=== PATIENT | female | born 1965 | race Caucasian/White ===

== ENCOUNTER 2024-06-07 14:24 | Emergency (ER) | payer BC, SELFPAY ==
[2024-06-07 14:25] VITALS: BP 122/56; PULSE 71; RESP 16; TEMP 36.4; O2SAT 100
--- NOTE | 2024-06-07 15:21 | ED.GENADULT ---
HPI - General Adult General Chief complaint: Wound/Laceration Stated complaint: L WRIST LAC ACCIDENTAL Time Seen by Provider: 06/07/24 15:13 History of Present Illness HPI narrative: patient is 59-year-old female who presents emergency department with chief complaint of left forearm laceration. Patient reports she was using a gill box fixer and missed and caused a laceration to the volar aspect of her left wrist the patient does report that there is a area of exposed tendon. The patient reports no numbness or tingling in her hand reports full range of motion Related Data Allergies Allergy/AdvReac Type Severity Reaction Status Date / Time penicillin G Allergy Mild Unverified 03/14/09 17:13 Review of Systems Review of Systems: A 10 system review of systems was completed on the patient and is negative except for what is stated in the HPI. Nursing and ancillary documentation was reviewed. Exam Narrative: GENERAL: Well-appearing, well-nourished, and in no acute distress. HEAD: Normocephalic, atraumatic. EYES: PERRLA and EOMI. ENT: Nares clear, no rhinorrhea or epistaxis. Mucous membranes moist. NECK: Supple. CHEST: Clear to auscultation. No respiratory distress. HEART: Regular rate and rhythm. No murmur heard. Normal peripheral pulses. ABDOMEN: Soft, nontender, nondistended, normal active bowel sounds. EXTREMITIES: Normal range of motion. No edema. 4 cm laceration of the volar aspect of the left forearm, full range of motion of the hand good strength good sensation the tendon is exposed there does appear to be a superficial cut into the tendon but full range of motion SKIN: Warm, dry, no rash. NEURO: No focal deficits. Alert and oriented x3. PSYCH: Normal mood and affect. Course Vital Signs Vital signs: Vital Signs Temperature 36.4 C 06/07/24 14:25 Pulse Rate 71 06/07/24 14:25 Respiratory Rate 16 06/07/24 14:25 Blood Pressure 122/56 L 06/07/24 14:25 Pulse Oximetry 100 06/07/24 14:25 Oxygen Delivery Room Air 06/07/24 14:25 Temperature 36.4 C 06/07/24 14:25 Pulse Rate 71 06/07/24 14:25 Respiratory Rate 16 06/07/24 14:25 Blood Pressure 122/56 L 06/07/24 14:25 Pulse Oximetry 100 06/07/24 14:25 Oxygen Delivery Room Air 06/07/24 14:25 Procedures Laceration Laceration 1: Date: 06/07/24 Time: 16:05 Site: upper extremity ( left forearm) Side (If applicable): left Size (cm): 4 Description: linear Depth: simple, single layer Local Anesthetic: lidocaine 1% Amount of anesthesia used (mL): 5 Pre-repair: irrigated extensively ====== Skin Level ====== Skin layer closed with: prolene Size (cm): 4-0 Number of sutures: 7 Technique: simple, interrupted ====== Subcutaneous Layer ====== ====== Muscle Layer ====== ====== Tendon Layer ====== Medical Decision Making MDM Narrative Medical decision making narrative: differential diagnosis includes superficial laceration, tendon laceration, the patient has full range of motion showing no signs of complete tendon laceration. There is no signs of vascular compromise no signs of nerve injury. Patient's tetanus status will be updated patient's wound will be closed Vital Signs Vital Signs: Vital Signs Temperature 36.4 C 06/07/24 14:25 Pulse Rate 71 06/07/24 14:25 Respiratory Rate 16 06/07/24 14:25 Blood Pressure 122/56 L 06/07/24 14:25 Pulse Oximetry 100 06/07/24 14:25 Oxygen Delivery Room Air 06/07/24 14:25 Temperature 36.4 C 06/07/24 14:25 Pulse Rate 71 06/07/24 14:25 Respiratory Rate 16 06/07/24 14:25 Blood Pressure 122/56 L 06/07/24 14:25 Pulse Oximetry 100 06/07/24 14:25 Oxygen Delivery Room Air 06/07/24 14:25 Discharge Plan Discharge Clinical Impression: Laceration of forearm, left Qualifiers: Encounter type: initial encounter Qualified Code(s): S51.812A - Laceration without foreign body of left forearm, initial encounter Patient Disposition: Home, Self-Care Condition: Stable Instructions: Antibiotic Form, Care For Your Stitches (ED), Laceration (ED) Additional Instructions: please have the sutures removed in 7-10 days Follow-up/Referrals: PHYSICIAN,CONSTRUCTION PROJECT MANAGER [Primary Care Provider] - Mono Eric MD [Physician] - Time of Disposition: 16:06
[2024-06-07] MEDS: TETANUS,DIPHTHERIA,AC PERTUSSIS ADULT (0.5 ML) BOOSTRIX IM (16:11)
== END 2024-06-07 16:25 | disposition home or self-care (01) ==
PROVIDERS: Emergency Provider Emergency Medicine
DX: S51.812A Laceration without foreign body of left forearm, initial encounter (principal); Z23 Encounter for immunization; W27.8XXA Contact with other nonpowered hand tool, initial encounter
CPT/HCPCS: 12002; 90471; 90715; 99282